=== PATIENT | male | born 1955 | race Native Hawaiian/Other Pacific Islander ===

== ENCOUNTER 2017-04-04 09:05 | Outpatient (CLI) | payer BC ==
[2017-04-04 09:38] LABS: POTASSIUM 4.3 mmol/L (3.6-5.2); SODIUM 140 mmol/L (136-145)
== END 2017-04-04 10:15 | disposition home or self-care (01) ==
LOC: LABW 09:05
PROVIDERS: Internal Medicine
DX: E87.5 Hyperkalemia (principal)
CPT/HCPCS: 36415; 80048

== ENCOUNTER 2022-07-19 13:26 | Outpatient (CLI) | payer BC ==
[2022-07-19 13:56] LABS: PLATELET COUNT 141 K/uL (142-355)
[2022-07-19 13:59] LABS: POTASSIUM 4.6 mmol/L (3.6-5.2)
== END 2022-07-19 19:26 | disposition home or self-care (01) ==
LOC: LAB 13:26
PROVIDERS: ATTEND Internal Medicine
DX: R21 Rash and other nonspecific skin eruption (principal)
CPT/HCPCS: 80053; 85027; 85652